=== PATIENT | female | born 1980 | race Caucasian/White ===

== ENCOUNTER 2018-02-03 04:29 | Inpatient (IN) | payer OTHER ==
--- NOTE | 2018-02-03 05:14 | PN ---
L&D Outpatient: Visit - Reproductive Information Estimated Due Date: 02/06/18 Gestational Age: 39 Weeks and 4 Days : 1 Para: 0 - Reason for Visit Visit Reason: Pt reports contractions increasing in frequency and intensity. Still fairly comfortable, but has to breathe through some ctx. Denies SROM. Reports active FM. - Antepartal Records Antepartal Record: Reviewed, Complicated by: - age 37 at delivery - Patient History Patient History Significant: Yes Patient History Significant For: depression, restless leg syndrome Review of Systems Constitutional: Comfortable - comfortable between ctx, uncomfortable during them CV Complaint: No Respiratory: Shortness of Breath: No Gastrointestinal: No Nausea/Vomiting, Normal Bowel Movement Genitourinary: No Dysuria, No Bleeding, No Leaking Fluid Musculoskeletal: No Epigastric Pain, Contractions Neurological: No Headache, No Visual Changes Movement: Normal L&D Outpatient: Exam Vitals - Most Recent: T-98.4, P-79, R-20, BP 115/84, O2-98% - Cervical Exam Cervical Exam: 3cm/ 100%/-1/ vtx - Abdominal Exam Abdomen Exam: Non-Tender, Fundal Height Consistent with Dates - Membranes Membrane Status: Intact - Ultrasound/Biophysical Profile Ultrasound Status: Not Done EFM Findings - External Monitor Findings Baseline Heart Rate: 145 External Monitor Findings: No Pattern of Variable or Late Decelerations, Variability Moderate, Baseline Stable, Accelerations Absent Contractions: Regular, Moderate, 45-90 Seconds Contraction Frequency: 2-4 minutes L&D Outpatient: Asses/Plan Assessment: 37 year old at 39 4/7 weeks gestation in early labor, membranes intact, GBS positive, with no evidence of acidemia Plan: Continue Observation - Will monitor FHR until reactive, then can do intermittent monitoring. Will recheck pt in 1-2 hours. Will initiate GBS prophylaxis and admit once pt in active labor.
[2018-02-03] MEDS ORDERED: Penicillin G Potassium IV* 5,000,000 UNITS in NS 0.9% 100 ML* 100 ML IVPB ONE (06:48)
[2018-02-03 07:24] LABS: ABS Basophils 0 10^3/ul (0-0.2); ABS Eosinophils 0 10^3/ul (0-0.6); ABS Lymphocytes 2.7 10^3/ul (1.0-4.8); ABS Monocytes 0.6 10^3/ul (0-0.8); ABS Neutrophils 8.6 10^3/ul (1.5-7.7); ABS Nucleated RBC 0 10^3/ul; Eosinophil % 0.2 % (0-6); Hematocrit 34 % (35-47); Hemoglobin 11.7 g/dl (12.0-16.0); Lymphocyte % 22.4 % (25-47); Mean Corpuscular HGB Conc 34 g/dl (31-36); Mean Corpuscular Hemoglobin 29 pg (27-31); Mean Corpuscular Volume 85 fL (80-97); Mean Platelet Volume 7.3 um3 (7.4-10.4); Nucleated Red Blood Cells % 0; Platelet Count 273 10^3/ul (150-450); Red Blood Count 4.06 10^6/ul (4.00-5.40); Red Cell Distribution Width 13 % (10.5-15); White Blood Count 11.9 10^3/ul (3.5-10.8)
--- NOTE | 2018-02-03 08:08 | HP ---
General Information - General Information Maternal Age: 37 Grav: 1 Para: 0 SAB: 0 IEA: 0 Estimated Due Date: 02/06/18 Determined By: LMP Gestational Age in Weeks/Days: 39 4/7 Maternal Blood Type and Rh: B Positive - Results this Serology/RPR Result: Non-Reactive Rubella Result: Immune HBsAg Result: Negative HIV Result: Negative GBS Culture Result: Positive Past Medical History Delivery History: See Records - primigravida Pertinent Past Medical History: See Records - depression, restless leg syndrome Pertinent Past Surgical History: See Records - tonsillectomy adenoidectomy Pertinent Family History: Non-Contributory - Antepartal Records Antepartal Records: Reviewed, Complicated by: - maternal age 37 at delivery Review of Systems Constitutional: Comfortable CV Complaint: No Respiratory: Shortness of Breath: No Gastrointestinal: No Nausea/Vomiting, Normal Bowel Movement Genitourinary: No Dysuria, No Bleeding, No Leaking Fluid Musculoskeletal: No Epigastric Pain, Contractions Neurological: No Headache, No Visual Changes Movement: Normal Exam Allergies/Adverse Reactions: Allergies guafenesin Allergy (Mild, Uncoded 02/03/18 05:38) Hallucinations T-98.4, P-79, R-20, O2- 98%, BP-115/84 Lab Values - Entire Visit: Laboratory Tests 02/03/18 02/03/18 06:55 06:55 WBC 11.9 H RBC 4.06 Hgb 11.7 L Hct 34 L MCV 85 MCH 29 MCHC 34 RDW 13 Plt Count 273 MPV 7.3 L Neut % (Auto) 71.9 Lymph % (Auto) 22.4 L Dougherty % (Auto) 5.3 Eos % (Auto) 0.2 Baso % (Auto) 0.2 Absolute Neuts (auto) 8.6 H Absolute Lymphs (auto) 2.7 Absolute Monos (auto) 0.6 Absolute Eos (auto) 0 Absolute Basos (auto) 0 Absolute Nucleated RBC 0 Nucleated RBC % 0 Blood Type B Positive Antibody Screen Negative - Measurements Height: 5 ft 7 in Weight: 77.111 kg Weight in lbs: 170.653376 Body Mass Index (BMI): 26.6 Pre- Weight: 65.771 kg Weight Gained This : 25 lbs and 0 ozs - Exam Breast: Breast Exam Deferred CVA: No CVA Tenderness Extremities: No Edema Heart: Normal Rhythm/Heart Sounds HEENT: No Significant Findings Lungs: Clear Bilaterally Rectal: Rectal Exam Deferred Reflexes: DTR 2+ Thyroid: No Thyromegaly - Abdominal Exam Abdomen Exam: Non-Tender, Fundal Height Consistent with Dates - Ultrasound/Biophysical Profile Ultrasound Status: Not Done Targeted Exam Findings See L&D Outpatient Visit Provider Note for Findings: Yes Estimated Weight: 7# Cervical Exam: 4cm Effacement: 100% Station: -1 Presenting Part: Vertex Membrane Status: Intact Bleeding/Discharge: Bloody Show EFM Findings - External Monitor Findings Baseline Heart Rate: 150 External Monitor Findings: Accelerations Present, No Pattern of Variable or Late Decelerations, Variability Moderate, Baseline Stable Contractions: Regular, Moderate, 45-90 Seconds Contraction Frequency: 2-5 Assessment/Plan - Assessment 37 year old at 39 4/7 weeks gestation in active labor w/ no evidence of acidemia, membranes intact, GBS positive - Obstetrical Risk Factors Obstetrical Risk Factors: GBS Positive - Plan Plan: Admit - Anticipate Vaginal Delivery - Date/Time of Admission Date of Admission: 02/03/18 Time of Admission: 06:51
[2018-02-03] MEDS ORDERED: Nalbuphine* 10 MG/ML 1 ML VIAL ONE (11:32)
[2018-02-03] MEDS ORDERED: Promethazine INJ(RESTRICTED)* 25 MG/ML 1 ML VIAL ONE (11:32)
[2018-02-03] MEDS ORDERED: Nalbuphine* 10 MG/ML 1 ML VIAL IV ONE (11:40)
--- NOTE | 2018-02-03 11:40 | PN ---
Progress Note - Progress Note Date of Service: 02/03/18 Note: S: Pt surrounded by support from friend, mother and sister. Starting to feel tired and interested in discussing trial of therapeutic rest O: BP 114/74 HR 85 T 98.9 RR 20 FHT: 155bpm. Moderate variability. +Accels No decels UCs q 2-5 by pt report VE: 4-5/100%/vtx -1, intact BOW A: IUP at 39-4/7 in early active labor No evidence of metabolic acidemia GBS + P: Counseled for trial IV pain relief vs therapeutic rest with IV Fentanyl vs Nubain/Phenergan. PARQ. At this time pt comfortable with trying a half dose of IV Nubain and Phenergan. Con't GBS prophylaxis. Enc rest.
[2018-02-03] MEDS ORDERED: Promethazine INJ(RESTRICTED)* 25 MG/ML 1 ML VIAL IV ONE (11:41)
[2018-02-03] MEDS: Penicillin G Potassium IV* 2,500,000 UNITS in NS 0.9% 100 ML* 100 ML IVPB SCH ×2 (11:53→16:05)
--- NOTE | 2018-02-03 14:59 | PN ---
Progress Note - Progress Note Date of Service: 02/03/18 Note: S: Pt able to rest in between UCs but finding them increasingly strong. Requests VE O: VSS FHT: 150bpm by doptones. No decels UCs q 2-4 min VE: 7cm/100%/vtx -1, intact A: IUP at 39-4/7 in active labor No evidence of metabolic acidemia GBS+ P: Bedside support. Pt might be interested in trying tub for hydrotherapy. Con' t GBS prophylaxis
--- NOTE | 2018-02-03 16:23 | PN ---
Progress Note - Progress Note Date of Service: 02/03/18 Note: S: Paged by RN to evaluate pt due to increased rectal pressure between UCs. No spontaneous pushing. O: VSS FHT: 150bpm by doptones. No decels UCs q 2-4 VE: 7cm/100%/vtx 0 intact with BOW A: IUP at 39-4/7 in active labor No evidence of metabolic acidemia GBS + P: Reassurance given. Expectant mgmt for now.
--- NOTE | 2018-02-03 18:27 | PN ---
Progress Note - Progress Note Date of Service: 02/03/18 Note: S: Pt coping really well. Strong bedside support from family and friend. Spoke with who is in [place] and won't arrive in [place] until 02/08. ?SROM to clear fluid O: VSS FHT 155bpm. Moderate variability. +Accels. No decels UCs q 4 min VE: 8-9cm/100%/vtx 0, membranes still felt but possible leaking A: IUP at 39-4/7 in active labor No evidence of metabolic acidemia GBS + P: Offered AROM. Pt declines at this time. Discussed transition of care at 1999 if still undelivered to Nitza Roberts LM. Pt verbalizes understanding and agreement. Con't GBS prophylaxis. Expectant mgmt for now. Anticipate trial of pushing soon.
[2018-02-03] MEDS ORDERED: Glycerin ADULT SUPP PR PRN (20:19)
[2018-02-03] MEDS ORDERED: Witch Hazel PAD* JAR TOPICAL PRN (20:19)
[2018-02-03] MEDS ORDERED: Dibucaine 1% 28.35 GM TUBE PR PRN (20:19)
[2018-02-03] MEDS ORDERED: Acetaminophen TAB* 325 MG PO PRN (20:19)
--- NOTE | 2018-02-03 20:29 | PROCNOTE ---
[facility] OB: Delivery Note - Delivery A Date of : 02/03/18 Time of : 19:50 [place] Sex: Male Score 1 Minute: 9 Score 5 Minutes: 9 Gestational Age in Weeks and Days at Delivery: 39 Weeks and 4 Days Delivery Method: Spontaneous Vaginal Labor: Spontaneous Did Patient attempt ?: N/A, No Previous Amniotic Fluid: Clear Estimated Blood Loss: 350 Anesthesia/Analgesia: IM/IV - Nubain and Phenergan x 1 dose at 4-5cm Delivered By: Juvencio Soriano - Nursery Level of Nursery: Regular/Bedside - Perineum Perineal Injury: 1st Degree Perineal Injury Comment: 3-0 Rapide under local infiltration 1% lidocaine. Pt tolerated well Perineal Repair: By Delivering Practioner - Events Delivery Events of Note: Full Course of Antibiotics - for GBS prophylaxis - Additional Delivery Notes Additional Delivery Notes: Pt admitted in labor with expected progression to complete. Length of active phase 10 hours, 16 min. Pushed x 37 min. liveborn male. Slow, controlled delivery of head. OA. Tight transverse shoulders followed with strong maternal push. vigorous with spontaneous cry. HR>110bpm. Delivered to maternal abdomen. Apgars 9/9. Cord clamped x 2 and cut by pt's friend. Spontaneous delivery intact placenta. 3VC. Membranes complete. Fundus firm to massage with minimal bleeding. Repair as above. EBL 350mL. At time of note mother and in stable condition. Planning to breast feed.
[2018-02-03] MEDS: Simethicone TAB* 80 MG TAB.CHEW PO SCH (22:19)
[2018-02-03] MEDS: Docusate CAP* 100 MG PO SCH (22:19)
[2018-02-03] MEDS: Ibuprofen TAB* 600 MG PO PRN (22:19)
[2018-02-04 07:29] LABS: ABS Basophils 0 10^3/ul (0-0.2); ABS Eosinophils 0.1 10^3/ul (0-0.6); ABS Lymphocytes 4.4 10^3/ul (1.0-4.8); ABS Monocytes 1.3 10^3/ul (0-0.8); ABS Neutrophils 14.1 10^3/ul (1.5-7.7); ABS Nucleated RBC 0 10^3/ul; Eosinophil % 0.3 % (0-6); Hematocrit 31 % (35-47); Hemoglobin 10.3 g/dl (12.0-16.0); Lymphocyte % 21.9 % (25-47); Mean Corpuscular HGB Conc 33 g/dl (31-36); Mean Corpuscular Hemoglobin 29 pg (27-31); Mean Corpuscular Volume 86 fL (80-97); Mean Platelet Volume 7.5 um3 (7.4-10.4); Nucleated Red Blood Cells % 0; Platelet Count 269 10^3/ul (150-450); Red Blood Count 3.61 10^6/ul (4.00-5.40); Red Cell Distribution Width 13 % (10.5-15); White Blood Count 19.8 10^3/ul (3.5-10.8)
[2018-02-04] MEDS: Simethicone TAB* 80 MG TAB.CHEW PO SCH (08:33)
[2018-02-04] MEDS: Docusate CAP* 100 MG PO SCH ×3 (08:38→21:03)
[2018-02-04] MEDS ORDERED: Ferrous Gluconate TAB* 324 MG TAB PO SCH (09:00)
[2018-02-04] MEDS: Ibuprofen TAB* 600 MG PO PRN ×2 (10:03→21:03)
--- NOTE | 2018-02-05 01:14 | PTEDU ---
Patient Name: CURLY LAWSON CURLY LAWSON selected video: Follow Me Mum: [employer] [facility] Successful to view on at 1:14:02 AM from [id number]
[2018-02-05 08:11] VITALS: BP 89/58
[2018-02-05] MEDS: Docusate CAP* 100 MG PO SCH ×2 (08:57→13:11)
== END 2018-02-05 18:50 | disposition home or self-care (01) | DRG 560 ==
LOC: MCHOBOUT 04:29 → MCHOB 06:51
PROVIDERS: ADMIT Midwife; ATTEND Midwife
PROC: 10E0XZZ Delivery of Products of Conception, External Approach (ICD-10-PCS; principal; 2018-02-03)
PROC: 0HQ9XZZ Repair Perineum Skin, External Approach (ICD-10-PCS; 2018-02-03)
DX: O99.824 Streptococcus B carrier state complicating childbirth (principal); Z37.0 Single live birth; O70.0 First degree perineal laceration during delivery; O75.89 Other specified complications of labor and delivery; G25.81 Restless legs syndrome; Z3A.39 39 weeks gestation of pregnancy
CPT/HCPCS: 36415; 85025; 86850; 86900; 86901; A9270-GY; J2300; J2540; J2550